=== PATIENT | female | born 1955 | race Caucasian/White ===

== ENCOUNTER → 2018-02-07 | Outpatient (CLI) | payer MEDICAID ==
[2018-02-07 18:42] LABS: Albumin 4.6 g/dL (3.80-4.90); Albumin/Globulin Ratio 2.09 (1.20-2.10); Anion Gap 10.5 mmol/L (4.00-12.00); Calcium 9.4 mg/dL (8.7-10.3); Carbon Dioxide 21.5 mmol/L (21.6-31.8); Globulin 2.2 g/dL (2.1-3.7); LDL Cholesterol,Calculated 147.4 mg/dL (0.0-131.0); Potassium 4.5 mmol/L (3.5-5.5); Total Bilirubin 0.5 mg/dL (0.3-1.2); Total Protein 6.8 g/dL (6.2-8.2); VLDL Calculation 51.6 mg/dL (5.00-40.00)
[2018-02-07 18:49] LABS: T4, Free (Free Thyroxine) 1.2 ng/dL (0.80-1.80)
[2018-02-07 22:44] LABS: Hemoglobin A1C 7.1 % (4.0-6.0)
== END ==
LOC: LABWHC1 13:34
PROVIDERS: ATTEND Internal Medicine Endocrinology, Diabetes & Metabolism
DX: E11.65 Type 2 diabetes mellitus with hyperglycemia (principal); E55.9 Vitamin D deficiency, unspecified; E03.9 Hypothyroidism, unspecified
CPT/HCPCS: 36415; 80053; 80061; 82306; 83036; 84439; 84443

== ENCOUNTER 2022-11-29 07:19 | Day surgery (SDC) | payer MEDICAID, MEDICARE ==
[2022-11-26 16:15] VITALS: BMI 29.1
[~2022-11-29 07:19] MED LIST: LIDOCAINE 1% (10MG/ML) FOR IV START INTRADERMA PRN
--- NOTE | 2022-11-29 07:41 | P.GSHP ---
History of Present Illness H&P Date: 11/29/22 CHIEF COMPLAINT: GERD HISTORY OF PRESENT ILLNESS: The patient is a 66-year-old female who presents reports gastroesophageal reflux disease. Upper endoscopy was offered for further evaluation and management. PAST MEDICAL HISTORY: Please see list. PAST SURGICAL HISTORY: Please see list. MEDICATIONS: Please see list. ALLERGIES: Please see list. SOCIAL HISTORY: No illicit drug use FAMILY HISTORY: No reports of Crohn disease or ulcerative colitis. REVIEW OF ORGAN SYSTEMS: CONSTITUTIONAL: No reports of fevers or chills. GI: Denies any blood in stools or constipation. PHYSICAL EXAM: VITAL SIGNS: Stable GENERAL: Well-developed and pleasant in no acute distress. HEENT: No scleral icterus. Extraocular movements grossly intact. Moist buccal mucosa. NECK: Supple without lymphadenopathy. CHEST: Unlabored respirations. Equal bilateral excursions. CARDIOVASCULAR: Regular rate and rhythm. Distal 2+ pulses. ABDOMEN: Soft, nondistended. MUSCULOSKELETAL: No clubbing, cyanosis, or edema. ASSESSMENT: 1. Gastroesophageal reflux disease PLAN: 1. Recommend proceeding with an upper endoscopy Past Medical History Past Medical History: Diabetes Mellitus, Fibromyalgia, GERD/Reflux, Hyperlipidemia, Hypertension, Osteoarthritis (OA), Thyroid Disorder Additional Past Medical History / Comment(s): inflamed pancreas, hx. of bladder cystitis. History of Any Multi-Drug Resistant Organisms: None Reported Additional Past Surgical History / Comment(s): Bladder extension, colonoscopy. Past Anesthesia/Blood Transfusion Reactions: No Reported Reaction Smoking Status: Never smoker - Past Family History Mother Family Medical History: Coronary Artery Disease (CAD) Medications and Allergies Home Medications Medication Instructions Recorded Confirmed Type Amitriptyline HCl [Elavil] 75 mg PO HS 11/26/22 11/26/22 History Levothyroxine Sodium [Synthroid] 75 mcg PO DAILY 11/26/22 11/26/22 History Meloxicam [Mobic] 15 mg PO DAILY 11/26/22 11/26/22 History lisinopriL [Zestril] 5 mg PO DAILY 11/26/22 11/26/22 History metFORMIN HCL 500 mg PO BID 11/26/22 11/26/22 History Allergies Allergy/AdvReac Type Severity Reaction Status Date / Time Sulfa (Sulfonamide Allergy Rash/Hives Verified 11/26/22 15:58 Antibiotics)
[2022-11-29 08:05] VITALS: RESP 16; TEMP 97.1
[2022-11-29] MEDS: LACTATED RINGERS 1,000 ML IV SCH ×2 (08:06→08:28)
[2022-11-29 08:07] LABS: Glucose,Whole Blood 121 mg/dL (70-110)
[2022-11-29] MEDS ORDERED: LIDOCAINE 2% INJ 20 MG/ML (2 ML VIAL) ONE (08:29)
[2022-11-29] MEDS ORDERED: PROPOFOL 10 MG/ML 20 ML VIAL IV ONE (08:29)
--- NOTE | 2022-11-29 09:08 | P.PCN ---
Date of Procedure: 11/29/22 Description of Procedure: PREOPERATIVE DIAGNOSIS: Gastroesophageal reflux disease. POSTOPERATIVE DIAGNOSIS: Gastroesophageal reflux disease. Gastritis with bleeding Diaphragmatic hiatal hernia OPERATION: Esophagogastroduodenoscopy with biopsies along antrum and duodenum SURGEON: Felipa Rordiguez MD ANESTHESIA: MAC. INDICATIONS: The patient is a 66-year-old female who presents with reflux disease. Benefits and risks of the procedure were described. Informed consent was obtained. DESCRIPTION: The patient was brought into the endoscopy suite and laid in the left lateral decubitus position. An Olympus gastroscope was passed along the posterior oropharynx down to the distal esophagus where the squamocolumnar junction was encountered at 40 cm from the incisors. The stomach was entered and no bile reflux was found. Additional findings are listed below. Biopsies with cold forceps were obtained of the antrum. The first through third portion of the duodenum was examined. Retroflexion of the scope confirmed Hill grade 3 lower esophageal valve. The squamocolumnar junction demonstrated LA grade B erosive esophagitis. The stomach was desufflated. The patient tolerated the procedure well. FINDINGS: Squamocolumnar junction 36 cm from the incisors. Diaphragmatic hiatus at 37 cm. Hiatal hernia, 1 cm Hill grade 3 lower esophageal valve. LA grade B erosive esophagitis. Biopsies obtained of the duodenum. Chronic gastritis with biopsies obtained. RECOMMENDATIONS: Omeprazole 40 mg daily for 2 weeks Plan - Discharge Summary Discharge Rx Participant: Yes New Discharge Prescriptions: New Omeprazole [PriLOSEC] 40 mg PO DAILY #14 cap Continue lisinopriL [Zestril] 5 mg PO DAILY Levothyroxine Sodium [Synthroid] 75 mcg PO DAILY Amitriptyline HCl [Elavil] 75 mg PO HS metFORMIN HCL 500 mg PO BID Meloxicam [Mobic] 15 mg PO DAILY Discharge Medication List Amitriptyline HCl [Elavil] 75 mg PO HS 11/26/22 [History] Levothyroxine Sodium [Synthroid] 75 mcg PO DAILY 11/26/22 [History] Meloxicam [Mobic] 15 mg PO DAILY 11/26/22 [History] lisinopriL [Zestril] 5 mg PO DAILY 11/26/22 [History] metFORMIN HCL 500 mg PO BID 11/26/22 [History] Omeprazole [PriLOSEC] 40 mg PO DAILY #14 cap 11/29/22 [Rx] Follow up Appointment(s)/Referral(s): Felipa Rodriguez MD [STAFF PHYSICIAN] - 12/25/22 2:00 pm Discharge Disposition: HOME SELF-CARE
[2022-11-29 09:25] VITALS: BP 125/78; PULSE 68
== END 2022-11-29 09:49 | disposition home or self-care (01) ==
LOC: ORWHC2ENDO 07:19
PROVIDERS: ATTEND Surgery Plastic and Reconstructive Surgery
DX: K29.50 Unspecified chronic gastritis without bleeding (principal); K44.9 Diaphragmatic hernia without obstruction or gangrene; K21.00 Gastro-esophageal reflux disease with esophagitis, without bleeding; E11.9 Type 2 diabetes mellitus without complications; I10 Essential (primary) hypertension; E78.5 Hyperlipidemia, unspecified; M19.90 Unspecified osteoarthritis, unspecified site; Z82.49 Family history of ischemic heart disease and other diseases of the circulatory system; Z79.890 Hormone replacement therapy; Z79.1 Long term (current) use of non-steroidal anti-inflammatories (NSAID); Z79.899 Other long term (current) drug therapy; Z79.84 Long term (current) use of oral hypoglycemic drugs; Z88.2 Allergy status to sulfonamides
CPT/HCPCS: 88305; 43239; J2704; J2001

== ENCOUNTER 2023-02-21 10:57 | Day surgery (SDC) | payer MEDICARE ==
--- NOTE | 2023-02-21 08:02 | P.GSHP ---
History of Present Illness H&P Date: 02/21/23 CHIEF COMPLAINT: Cholecystitis HISTORY OF PRESENT ILLNESS: The patient is a 67-year-old female who presents with history of epigastric including right upper quadrant abdominal pain. She underwent diagnostic studies for her gallbladder. Separately her clinical picture was consistent with cholecystitis. Now she presents for surgical intervention. PAST MEDICAL HISTORY: Please see list PAST SURGICAL HISTORY: Please see list MEDICATIONS: Please see list ALLERGIES: Please see list SOCIAL HISTORY: Please see list FAMILY HISTORY: Please see list REVIEW OF ORGAN SYSTEMS: CONSTITUTIONAL: No reports of fevers or chills. HEENT: Denies any troubles with the vision or hearing. ENDOCRINE: No reports of hypothyroidism. No diabetes. RESPIRATORY: No recent pneumonias. CARDIOVASCULAR: Denies current chest pain or palpitations GI: No blood in stools or constipation. MUSCULOSKELETAL: Has occasional joint pain including back pain. NEURO: No seizure disorders or headaches. No recent stroke. PSYCH: No current depression or suicidal ideation. GENITOURINARY: No active blood in urine. No urinary hesitancy. HEMATOLOGIC: No personal or family history of DVTs or pulmonary emboli. SKIN: No skin cancer. PHYSICAL EXAM: VITAL SIGNS: Afebrile vital signs stable GENERAL: Well-developed pleasant in no acute distress. HEENT: No scleral icterus. Extraocular movements grossly intact. Moist buccal mucosa. NECK: Supple without lymphadenopathy. CHEST: Unlabored respirations. Equal bilateral excursions. CARDIOVASCULAR: Regular rate regular rhythm rhythm. Distal 2+ pulses. ABDOMEN: Soft, nondistended. Tender along the epigastrium and right upper quadrant. MUSCULOSKELETAL: No clubbing, cyanosis, or edema. NEURO: Cranial nerves II to XII within normal limits. No focal or lateralizing signs. PSYCH: Alert and oriented to person, place and time. SKIN: Well-perfused good skin turgor. ASSESSMENT: 1. Epigastric and right upper quadrant abdominal pain 2. Chronic cholecystitis 3. Symptomatic gallstones. 4. Hypertensive heart disease PLAN: 1. Will need a robotic cholecystectomy possible open. Benefits and risks were described. 2. Heparin for DVT prophylaxis 5000 units. 3. Antibiotic prophylaxis. 4. CBC and CMP on day of procedure 5. Non-narcotic pre and post op pain management reviewed. 6. Indocyanine green for biliary imaging. 7. EKG for hypertensive heart disease Past Medical History Past Medical History: Diabetes Mellitus, Fibromyalgia, GERD/Reflux, Hyperlipidemia, Hypertension, Osteoarthritis (OA), Thyroid Disorder Additional Past Medical History / Comment(s): inflamed pancreas, elías knee arthritis, interstitial cystitis- difficult to start flow. chemical stress test. recently. SOB pt states she was told could be from her gallbladder. left hand fingers get numb, hiatal hernia History of Any Multi-Drug Resistant Organisms: None Reported Additional Past Surgical History / Comment(s): Bladder extension, colonoscopy. egd, Past Anesthesia/Blood Transfusion Reactions: Family History of Problems w/ Anesthesia Additional Past Anesthesia/Blood Transfusion Reaction / Comment(s): mom n/v Smoking Status: Never smoker - Past Family History Mother Family Medical History: Coronary Artery Disease (CAD) Father Family Medical History: Cancer, Coronary Artery Disease (CAD) Brother(s) Family Medical History: Myocardial Infarction ([place]) Medications and Allergies Home Medications Medication Instructions Recorded Confirmed Type Amitriptyline HCl [Elavil] 37.5 mg PO HS 11/26/22 02/18/23 History Levothyroxine Sodium [Synthroid] 75 mcg PO DAILY 11/26/22 02/18/23 History Meloxicam [Mobic] 15 mg PO DAILY 11/26/22 02/18/23 History lisinopriL [Zestril] 5 mg PO DAILY 11/26/22 02/18/23 History metFORMIN HCL 500 mg PO BID 11/26/22 02/18/23 History Ergocalciferol [Vitamin D2 (1250 1,250 mcg PO WEEKLY 02/18/23 02/18/23 History Mcg = 07575 Iu)] Omeprazole [PriLOSEC] 20 mg PO DAILY 02/18/23 02/18/23 History Unk Cinnamon 1 cap PO DAILY 02/18/23 02/18/23 History Allergies Allergy/AdvReac Type Severity Reaction Status Date / Time Sulfa (Sulfonamide Allergy Rash/Hives Verified 02/18/23 10:52 Antibiotics)
[~2023-02-21 10:57] MED LIST changes: +ACETAMINOPHEN TAB 500 MG TAB PO PRN; +DEXAMETHASONE SOD PHOSPHATE 4 MG/ML 1 ML VIAL IV ONE; +HEPARIN SODIUM,PORCINE/PF 5,000 UNIT/0.5 ML SYRINGE SQ PRN; +INDOCYANINE GREEN 25 MG VIAL IV STA; +LACTATED RINGERS 1,000 ML IV SCH; +ONDANSETRON 4 MG/2 ML VIAL IVP ONE; +ONDANSETRON 4 MG/2 ML VIAL IVP PRN; +droPERidol 5 MG/2 ML VIAL IVP ONE
[2023-02-21 11:37] LABS: Glucose,Whole Blood 96 mg/dL (70-110)
[2023-02-21 11:54] LABS: Basophils # (A) 0.1 k/uL (0-0.2); Basophils % (A) 1 %; Eosinophils # (A) 0.1 k/uL (0-0.7); Eosinophils % (A) 2 %; HCT 44.5 % (34.0-46.0); HGB 14.6 gm/dL (11.4-16.0); Lymphocytes # (A) 2.1 k/uL (1.0-4.8); Lymphocytes % (A) 32 %; MCH 28.2 pg (25.0-35.0); MCHC 32.8 g/dL (31.0-37.0); MCV 86.1 fL (80.0-100.0); Mean Platelet Volume 8.6; Monocytes # (A) 0.4 k/uL (0-1.0); Monocytes % (A) 6 %; Neutrophils # (A) 3.8 k/uL (1.3-7.7); Neutrophils % (A) 58 %; Platelet Count 261 k/uL (150-450); RBC 5.18 m/uL (3.80-5.40); RDW 14.2 % (11.5-15.5); WBC 6.7 k/uL (3.8-10.6)
[2023-02-21 12:23] LABS: ALT 21 U/L (4-34); AST 36 U/L (14-36); African American GFR (CKD) >90 (>60 ml/min/1.73 sqM); Albumin 4.6 g/dL (3.5-5.0); Alkaline Phosphatase 71 U/L (38-126); Anion Gap 12 mmol/L; Blood Urea Nitrogen 26 mg/dL (7-17); Carbon Dioxide 21 mmol/L (22-30); Chloride 104 mmol/L (98-107); Glucose 98 mg/dL (74-99); Non-African American GFR(CKD) 89 (>60 ml/min/1.73 sqM); Sodium 137 mmol/L (137-145); Total Bilirubin 0.9 mg/dL (0.2-1.3); Total Protein 7.9 g/dL (6.3-8.2)
[2023-02-21 12:25] LABS: Potassium 4.6 mmol/L (3.5-5.1)
[2023-02-21] MEDS ORDERED: MIDAZOLAM 2 MG/2 ML VIAL ONE (12:51)
[2023-02-21] MEDS ORDERED: fentaNYL (PF) 50 MCG/ML 2 ML AMP ONE (12:51)
[2023-02-21] MEDS ORDERED: PROPOFOL 10 MG/ML 20 ML VIAL IV ONE (12:51)
[2023-02-21] MEDS ORDERED: LIDOCAINE 1% INJ 10MG/ML (20 ML MDV) ONE (12:51)
[2023-02-21] MEDS ORDERED: NEOSTIGMINE 1 MG/ML 10 ML VIAL ONE (12:51)
[2023-02-21] MEDS ORDERED: PHENYLEPHRINE-0.9% NACL SYG 1,000 MCG/10 ML SYRINGE ONE (12:51)
[2023-02-21] MEDS ORDERED: VASOPRESSIN 20 UNIT/ML 1 ML VIAL ONE (12:51)
[2023-02-21] MEDS ORDERED: ROCURONIUM 10 MG/ML (5 ML VIAL) IV ONE (12:51)
[2023-02-21] MEDS ORDERED: SUCCINYLCHOLINE CHLORIDE 200 MG/10 ML VIAL IV ONE (12:51)
[2023-02-21] MEDS ORDERED: GLYCOPYRROLATE 0.2 MG/ML 2 ML VIAL ONE (12:51)
[2023-02-21] MEDS ORDERED: LIDOCAINE 0.5%-EPI 1:200,000 50 ML VIAL SQ ONE (13:26)
[2023-02-21] MEDS ORDERED: LACTATED RINGERS 1,000 ML IV ONE (14:13)
[2023-02-21] MEDS: HYDROmorphone 0.5 MG/0.5 ML SYRINGE IVP PRN ×3 (14:27→14:48)
--- NOTE | 2023-02-21 14:35 | P.OP ---
Date of Procedure: 02/21/23 Description of Procedure: SURGEON: FELIPA RODRIGUEZ MD PREOPERATIVE DIAGNOSES: 1. Symptomatic gallstones 2. Right upper quadrant abdominal pain 3. Hyperlipidemia 4. Diabetes type 2, [id number] 5. Hypothyroidism 6. Hypertensive heart disease 7. Gastroesophageal reflux disease POSTOPERATIVE DIAGNOSES: 1. Symptomatic gallstones 2. Right upper quadrant abdominal pain 3. Hyperlipidemia 4. Diabetes type 2, [id number] 5. Hypothyroidism 6. Hypertensive heart disease 7. Gastroesophageal reflux disease OPERATION: Robotic-assisted da Rebekah Xi laparoscopic cholecystectomy, multiport with FIREFLY ESTIMATED BLOOD LOSS: 5 mL. SPECIMENS REMOVED: Gallbladder. COMPLICATIONS: None. OPERATIVE FINDINGS: 1. Chronic cholecystitis INDICATIONS: The patient is a 67-year-old female who presents with symptomatic gallstones. Robotic assisted laparoscopic approach was described. Benefits and risks of the procedure including but not limited to bleeding, infection, injury to the biliary tree was described. Informed consent was obtained. DESCRIPTION OF PROCEDURE: Patient was brought to the operating room, placed in supine position. After general induction, the abdomen had been prepped and draped in standard sterile fashion. The robotic da Rebekah XI system was primed. After a timeout protocol was performed, the patient had been prepped and draped in standard sterile fashion. The patient was injected with indocyanine green. A 5 mm 0 degrees laparoscopic trocar entry was performed along the left upper quadrant. The abdomen insufflated to 15 mmHg pressure which was tolerated well. Diagnostic laparoscopy demonstrated no injury to bowel viscera or mesentery. The liver surface was unremarkable. Next, two 8 mm robotic ports were placed along the right upper abdomen. The camera 8-mm port was maintained along the epigastrium. Another 8 mm port was placed along the left upper abdominal wall after exchanging the 5 mm port. Please note that the ports were placed at least 10 to 15 cm away from the target anatomy of the gallbladder. The robot was docked along the left lateral abdomen. The patient was repositioned in reverse Trendelenburg position. Using a grasper for arm 3, a grasper for arm 4, including hook cautery for arm 1, the robotic system was docked and primed as described. Instruments were interchanged by the real estate administrative assistant including hook cautery, Bovie cautery and clip appliers. I had sat at the console. Next attention was brought to the infundibulum and cystic structures. The infundibulum and cystic duct were dissected free from surrounding tissues. The cystic duct was isolated. FIREFLY was used to identify the cystic artery and cystic structures. A critical view of safety was obtained. Large PLASTIC clips were used throughout the entire case. Using a clip picker operator, 2 clips were placed at the junction of the infundibulum and cystic duct. The cystic duct was divided between clips. Next, the cystic artery was similarly clipped and cauterized. Electro-Bovie cautery was used to remove the gallbladder from the hepatic fossa. Hemostasis was checked and found to be adequate. The robot was undocked. I re-scrubbed into the case. Using a 10 mm Endo Catch bag via the left upper quadrant incision, the specimen was removed from the abdominal cavity. All pneumoperitoneum instruments were evacuated from the abdominal cavity. The incisions were reapproximated using 4-0 Monocryl in an interrupted subcuticular fashion. Fascial defects were less than 8 mm in size. Please note along the trocar sites, local anesthetic was placed as a field block prior to insertion of all instruments. Liquid glue was applied to the skin. At the end of the procedure needle, sponge, and instrument count had been verified correct by the surgical instrument repair specialist. The patient was transferred to postanesthesia care unit in stable condition. Intraoperative films were shared with the patient's family. Plan - Discharge Summary Discharge Rx Participant: No New Discharge Prescriptions: New Acetaminophen Tab [Tylenol Tab] 1,000 mg PO Q6HR PRN #30 tablet PRN Reason: Pain Ibuprofen [Motrin] 600 mg PO Q8HR PRN #30 tab PRN Reason: Pain Simethicone [Gas-X] 125 mg PO AC-TID PRN #20 capsule PRN Reason: Pain Continue lisinopriL [Zestril] 5 mg PO DAILY Levothyroxine Sodium [Synthroid] 75 mcg PO DAILY Ergocalciferol [Vitamin D2 (1250 Mcg = 19193 Iu)] 1,250 mcg PO WEEKLY Omeprazole [PriLOSEC] 20 mg PO DAILY Atorvastatin [Lipitor] 10 mg PO DAILY Amitriptyline HCl [Elavil] 37.5 mg PO HS metFORMIN HCL 500 mg PO BID Meloxicam [Mobic] 15 mg PO DAILY Unk Cinnamon 1 cap PO DAILY Discharge Medication List Amitriptyline HCl [Elavil] 37.5 mg PO HS 11/26/22 [History] Levothyroxine Sodium [Synthroid] 75 mcg PO DAILY 11/26/22 [History] Meloxicam [Mobic] 15 mg PO DAILY 11/26/22 [History] lisinopriL [Zestril] 5 mg PO DAILY 11/26/22 [History] metFORMIN HCL 500 mg PO BID 11/26/22 [History] Ergocalciferol [Vitamin D2 (1250 Mcg = 34701 Iu)] 1,250 mcg PO WEEKLY 02/18/23 [History] Omeprazole [PriLOSEC] 20 mg PO DAILY 02/18/23 [History] Unk Cinnamon 1 cap PO DAILY 02/18/23 [History] Acetaminophen Tab [Tylenol Tab] 1,000 mg PO Q6HR PRN #30 tablet 02/21/23 [Rx] Atorvastatin [Lipitor] 10 mg PO DAILY 02/21/23 [History] Ibuprofen [Motrin] 600 mg PO Q8HR PRN #30 tab 02/21/23 [Rx] Simethicone [Gas-X] 125 mg PO AC-TID PRN #20 capsule 02/21/23 [Rx] Follow up Appointment(s)/Referral(s): Felipa Rodriguez MD [STAFF PHYSICIAN] - 02/26/23 Patient Instructions/Handouts: Low Fat Diet (DC), Cholecystitis (GEN), Laparoscopic Cholecystectomy (DC) Activity/Diet/Wound Care/Special Instructions: TELEHEALTH - DR WILL CALL YOU BETWEEN 8 am to 8 pm Recommend low-fat diet for the next 2 days. No lifting over 10 pounds in 2 weeks until Mar 07August shower. No bath tub soaks for two weeks until Mar 07 Diet as tolerated. Use Tylenol, simethicone and ibuprofen or Aleve scheduled for the next 24-48 hours for best pain relief. Use ice along incisions for today to prevent swelling. Discharge Disposition: HOME SELF-CARE
[2023-02-21 14:36] VITALS: TEMP 97.9
[2023-02-21] MEDS ORDERED: KETOROLAC 15 MG/ML 1 ML VIAL IVP ONE (14:39)
[2023-02-21 14:57] LABS: Glucose,Whole Blood 187 mg/dL (70-110)
[2023-02-21 17:18] VITALS: BP 109/70; PULSE 67; RESP 18
== END 2023-02-21 17:20 | disposition home or self-care (01) ==
LOC: OR 10:57
PROVIDERS: ATTEND Surgery Plastic and Reconstructive Surgery
DX: K80.12 Calculus of gallbladder with acute and chronic cholecystitis without obstruction (principal); I11.9 Hypertensive heart disease without heart failure; E03.9 Hypothyroidism, unspecified; E11.9 Type 2 diabetes mellitus without complications; E78.5 Hyperlipidemia, unspecified; K21.9 Gastro-esophageal reflux disease without esophagitis; M79.7 Fibromyalgia; Z79.1 Long term (current) use of non-steroidal anti-inflammatories (NSAID); Z79.84 Long term (current) use of oral hypoglycemic drugs; Z79.890 Hormone replacement therapy; Z79.899 Other long term (current) drug therapy; Z88.1 Allergy status to other antibiotic agents; Z88.2 Allergy status to sulfonamides
CPT/HCPCS: 47562; S2900; 80053; 85025; 88304

== ENCOUNTER → 2023-04-02 | Outpatient (CLI) | payer MEDICARE ==
[2023-04-02 14:42] LABS: INR 0.9 (<1.2); Partial Thromboplastin Time 22.9 sec (22.0-30.0); Prothrombin Time 10.2 sec (10.0-12.5)
[2023-04-02 18:39] LABS: HCT 42.7 % (37.2-46.3); HGB 14.2 g/dL (12.0-15.0); MCH 28.2 pg (27.0-32.0); MCHC 33.3 g/dL (32.0-37.0); MCV 84.9 FL (80.0-97.0); Mean Platelet Volume 11.5 FL (9.5-12.2); NRBC Per 100 WBC 0 X 10*3/uL (0.00-0.01); Platelet Count 255 X 10*3/uL (140-440); RBC 5.03 X 10*6/uL (4.10-5.20); RDW 14.9 % (11.5-14.5); WBC 6.38 X 10*3/uL (4.50-10.00)
[2023-04-02 19:00] LABS: ALT 19 U/L (8-44); AST 18 U/L (13-35); Albumin 4.4 g/dL (3.8-4.9); Albumin/Globulin Ratio 1.83 Ratio (1.60-3.17); Alkaline Phosphatase 82 U/L (41-126); BUN/Creat Ratio 26.11 Ratio (12.00-20.00); Blood Urea Nitrogen 23.5 mg/dL (9.0-27.0); Carbon Dioxide 21.3 mmol/L (21.6-31.8); Chloride 106 mmol/L (96-109); Globulin 2.4 g/dL (1.6-3.3); Glucose 118 mg/dL (70-110); Potassium 4.1 mmol/L (3.5-5.5); Sodium 141 mmol/L (135-145); Total Bilirubin 0.5 mg/dL (0.3-1.2); Total Protein 6.8 g/dL (6.2-8.2)
== END | disposition home or self-care (01) ==
LOC: LABPAT 13:37
PROVIDERS: ATTEND Orthopaedic Surgery Sports Medicine
DX: Z01.812 Encounter for preprocedural laboratory examination (principal); M17.12 Unilateral primary osteoarthritis, left knee; Z22.322 Carrier or suspected carrier of Methicillin resistant Staphylococcus aureus
CPT/HCPCS: 36415; 80053; 85027; 85610; 85730; 87070

== ENCOUNTER 2023-04-25 05:47 | Day surgery (SDC) | payer MEDICARE ==
[2023-04-18 16:11] VITALS: BMI 31.4
[~2023-04-25 05:47] MED LIST changes: -DEXAMETHASONE SOD PHOSPHATE 4 MG/ML 1 ML VIAL IV ONE; +GABAPENTIN 300 MG CAP PO PRN; -HEPARIN SODIUM,PORCINE/PF 5,000 UNIT/0.5 ML SYRINGE SQ PRN; -INDOCYANINE GREEN 25 MG VIAL IV STA; +MELOXICAM 7.5 MG TAB PO PRN; -ONDANSETRON 4 MG/2 ML VIAL IVP ONE; +TRANEXAMIC 1,000 MG/100ML-NACL 1,000 MG in SALINE 1 100ML.BAG IVPB PRN; -droPERidol 5 MG/2 ML VIAL IVP ONE
[2023-04-25] MEDS ORDERED: DEXAMETHASONE SOD PHOSPHATE 4 MG/ML 1 ML VIAL IVP ONE (06:50)
[2023-04-25 06:56] LABS: Glucose,Whole Blood 130 mg/dL (70-110)
[2023-04-25] MEDS ORDERED: MIDAZOLAM 2 MG/2 ML VIAL IVP ONE (07:04)
[2023-04-25] MEDS ORDERED: fentaNYL (PF) 50 MCG/ML 2 ML AMP IVP ONE (07:04)
[2023-04-25] MEDS ORDERED: ACETAMINOPHEN TAB 325 MG TAB PO PRN (07:22)
[2023-04-25] MEDS ORDERED: NALOXONE 0.4 MG/ML 1 ML VIAL IV PRN (07:22)
[2023-04-25] MEDS ORDERED: ONDANSETRON 4 MG/2 ML VIAL IVP PRN (07:22)
[2023-04-25] MEDS ORDERED: NA PHOS,M-B/NA PHOS,DI-BA 133 ML ENEMA RECTAL PRN (07:22)
[2023-04-25] MEDS ORDERED: bisacodyL 10 MG SUPP RECTAL PRN (07:22)
[2023-04-25] MEDS ORDERED: traMADol 50 MG TAB PO PRN (07:22)
[2023-04-25] MEDS ORDERED: MAGNESIUM HYDROXIDE 2,400 MG/30 ML CUP PO PRN (07:22)
[2023-04-25] MEDS ORDERED: HYDROmorphone 0.5 MG/0.5 ML SYRINGE IVP PRN ×3 (07:22)
[2023-04-25] MEDS ORDERED: HYDROcodone/APAP 7.5-325MG 1 EACH TAB PO PRN ×2 (07:26→16:42)
[2023-04-25] MEDS ORDERED: ePHEDrine 50 MG/ML 1 ML VIAL ONE (07:33)
[2023-04-25] MEDS ORDERED: fentaNYL (PF) 50 MCG/ML 2 ML AMP ONE (07:33)
[2023-04-25] MEDS ORDERED: LIDOCAINE 1% INJ 10MG/ML (20 ML MDV) ONE (07:33)
[2023-04-25] MEDS ORDERED: TRANEXAMIC 1,000 MG/100ML-NACL PREMIX BAG ONE (07:33)
[2023-04-25] MEDS ORDERED: PHENYLEPHRINE-0.9% NACL SYG 1,000 MCG/10 ML SYRINGE ONE (07:33)
[2023-04-25] MEDS ORDERED: ROPIVACAINE 5 MG/ML 30 ML VIAL ONE (07:33)
[2023-04-25] MEDS ORDERED: SODIUM CHLORIDE 0.9% (PF) 10 ML VIAL ONE (07:33)
[2023-04-25] MEDS ORDERED: PROPOFOL 10 MG/ML 20 ML VIAL IV ONE (07:33)
[2023-04-25] MEDS ORDERED: ceFAZolin 3,000 MG in SODIUM CHLORIDE 0.9% IRRIGATIO 3,000 ML IRRIGATION ONE (07:59)
[2023-04-25] MEDS ORDERED: LACTATED RINGERS 1,000 ML IV ONE (08:38)
[2023-04-25 09:36] LABS: Glucose,Whole Blood 139 mg/dL (70-110)
--- NOTE | 2023-04-25 09:38 | P.ANPRN ---
Procedure Note - Anesthesia - Nerve Block Performed Left Adductor Canal Infusion Time Out Performed: Yes (0704) Date of Procedure: 04/25/23 Procedure Start Time: 07:05 Procedure Stop Time: 07:12 Location of Patient: PreOp Indication: Acute Post-Operative Pain, Requested by Surgeon Specifically requested for management of pain by DrJimmie: Manuel Ludwig Sedation Type: Sedate with meaningful contact maintained Preparation: Sterile Prep, Sterile Dressing Position: Supine Catheter Depth at Skin (cm): 8 Catheter: Indwelling Needle Types: Pajunk Needle Gauge: 21 Ultrasound used to visualize needle placement: Yes Ultrasound used to observe medication spread: Yes Injectate: 0.5% Ropivacaine (see comment for volume) (15cc+ 10cc nacl pf) Blood Aspirated: No Pain Paresthesia on Injection Noted: No Resistance on Injection: Normal Image Stored and Saved: Yes Events: Uneventful and Well Tolerated
--- NOTE | 2023-04-25 09:39 | P.ANPRN ---
Procedure Note - Anesthesia - Nerve Block Performed Left iPack Single Time Out Performed: Yes (0704) Date of Procedure: 04/25/23 Procedure Start Time: 07:13 Procedure Stop Time: 07:15 Indication: Acute Post-Operative Pain, Requested by Surgeon Specifically requested for management of pain by DrJimmie: Manuel Ludwig Sedation Type: Sedate with meaningful contact maintained Preparation: Sterile Prep Position: Supine Catheter: None Needle Types: Pajunk Needle Gauge: 21 Ultrasound used to visualize needle placement: Yes Ultrasound used to observe medication spread: Yes Injectate: 0.5% Ropivacaine (see comment for volume) (15cc+10cc nacl pf) Blood Aspirated: No Pain Paresthesia on Injection Noted: No Resistance on Injection: Normal Image Stored and Saved: Yes Events: Uneventful and Well Tolerated
[2023-04-25] MEDS ORDERED: ROPIVACAINE 0.75% 1,100 MG, SODIUM CHLORIDE 0.9% 500 ML 403 ML, EMPTY PAIN BALL 1 EACH MISCELLANE PRN ×2 (09:41)
[2023-04-25] MEDS: HYDROmorphone 0.5 MG/0.5 ML SYRINGE IVP PRN ×2 (10:16→10:27)
--- NOTE | 2023-04-25 10:32 | XR ---
EXAMINATION TYPE: XR knee limited LT DATE OF EXAM: 04/25/2023 CLINICAL HISTORY: Left knee pain and arthritis status post total knee replacement. TECHNIQUE: Portable AP and crosstable lateral views of the left knee are obtained immediately postop eratively. COMPARISON: None FINDINGS: Metallic hardware from total left knee arthroplasty is seen and appears satisfactory in al ignment and position. There is evidence of recent surgery with diffuse subcutaneous gas and soft tis enrrique swelling noted. IMPRESSION: METALLIC HARDWARE FROM TOTAL LEFT KNEE ARTHROPLASTY IS SATISFACTORY IN ALIGNMENT.
--- NOTE | 2023-04-25 10:47 | OP ---
OPERATIVE REPORT DATE OF SERVICE : 04/25/2023 DIVING FISHER: Patrick Felton PA-C. PREOPERATIVE DIAGNOSIS: Left knee osteoarthrosis. POSTOPERATIVE DIAGNOSIS: Left knee osteoarthrosis. OPERATION: Left total knee arthroplasty. ANESTHESIA: Spinal with sedation. ESTIMATED BLOOD LOSS: 100 mL. TOURNIQUET TIME: 48 minutes at 250 mmHg. COMPLICATIONS: None apparent. DRAINS: None. DISPOSITION: Postanesthesia care unit. INDICATIONS: Christine is a pleasant 67-year-old female with longstanding history of left knee pain. History and physical examination are consistent with advanced left knee osteoarthrosis. She has been through significant operative management up to this point. Further treatment options were discussed, and she has decided to go forward with a left total knee arthroplasty. The risks of procedure were discussed with her in detail. These risks include, but are not limited to risk of infection, nerve damage, bleeding, pain, and a small risk of deep vein thrombosis, which could lead to fatal pulmonary embolism. There is also small risk of loosening of the implant, which could require revision operation. The patient understands these risks. All of her questions were answered to her satisfaction. An appropriate informed consent was obtained. DESCRIPTION OF THE PROCEDURE: The patient was identified in the preoperative holding area. Surgical site was marked by both the patient and myself. She was given 2 g of Ancef IV prophylactic purposes. She was then transferred to the operative suite. She was placed in supine on the operating room table. Spinal anesthetic was then administered and dosed per the anesthesia department without apparent complication. Examination under anesthesia was then performed. The patient was 5 to 7 degrees shy of full extension. She had 90 degrees of flexion. Medial collateral ligament, lateral collateral ligament, and posterior cruciate ligaments were stable. A tourniquet was then placed high on the left upper extremity, well-padded in preparation for surgery. The patient's left lower extremity was then prepped and draped in the usual sterile fashion. Standard surgical pause undertaken to ensure that we were operating the correct site and that appropriate preoperative antibiotics were given. All staff in the room were in agreement, and we proceeded. The outlines of the patella were then marked with a surgical pen. A planned 12 cm vertical incision centered over the patella and was marked with a surgical pen. Legs were then exsanguinated with an Esmarch dressing. The knee was then flexed, and the tourniquet was inflated to 250 mmHg. The total tourniquet time for the procedure was 48 minutes. Incision was then made with a 10-blade scalpel. This dissection was carried down sharply overlying fascia. Great care was taken to minimize the skin flaps. The knee was then exposed using a standard medial parapatellar approach. A small cuff of quadriceps tendon was then left for suturing. She was in quite a bit of varus preoperatively. A standard medial release was then made. The superficial medial collateral ligament was dissected off the bone around to the posterior aspect of the proximal tibia. The medial meniscus was then excised as well. The lateral meniscus was also released anteriorly. The leg was then externally rotated. The patella was everted. The knee was flexed. Retractors then placed to protect the collateral ligaments. I then proceeded to remove the infrapatellar fat pad. This excised sharply tangentially with fibers of the patellar tendon. I then proceeded to remove the peripheral osteophytes. This was done with a rongeur. I then proceeded with the distal femoral resection. She did have a significant flexion contracture. A planned 11 mm resection was then done. The femoral canal was then entered in the midline of the femur approximately 10 mm anterior to the origin of the posterior cruciate ligament. The amita was then advanced down to the center of the femur and placed intramedullary. Based on the preoperative radiographs, the angle between the anatomic and mechanical axis of the femur was approximately 4 to 5 degrees. The valgus angle of the distal femoral cutting guide was then set at 4 degrees for the left knee. The distal femoral cutting guide was then advanced over the intramedullary amita. This was seated firmly against the femur. Then as mentioned planned to take 11 mm off the distal femur. The cutting block was then secured onto the femur with pins. The jig was then removed. The distal femoral cut was made through the slot of the block. The pins were removed. The distal femoral cutting block was removed. The accuracy of the distal femoral cuts was checked with 2 flat bars. I then proceeded with femoral sizing. Posterior referencing sizing guide was held firmly against the resected distal surface of the femur. The posterior condyles were resting on the posterior plane of the guide. The sizing stylus was then placed on the anterior femur. The size was measured with a size 8. I then assessed for femoral rotation. The plan was for 3 degrees of external rotation. Three degrees of external rotation was placed onto the jig. These holes were then marked. We then confirmed the rotation by 3 separate methods. This was done using epicondylar axis as well as Whitesides line and posterior referencing. It was deemed that the external rotation was proper. I then went forward and placed the femoral cutting block. This was placed over the previously-placed pin holes. The Marquise wing was then placed on the anterior slots to ensure that we would not notch the anterior femur with the anterior femoral cut. I then proceeded with the anterior femoral cut. This was flushed with the anterior cortex of the femur. The posterior cuts were then made followed by the anterior chamfer cut and then the posterior chamfer cut. The cutting block was then removed. Throughout the resection, the collateral ligaments were protected with retractors. I then placed a trial size 8 femur. It was slightly wide, but the narrow fit very nicely, and it fit flushed with the distal end of the femur. The drill hole was then made. I then proceeded with the tibial cut. I planned for cruciate retaining knee. The guide was placed and set for varus valgus and for slope. Height was set for approximately 2 mm resection from the medial tibial plateau, which was the lower side. I was happy with the alignment and amount of resection. The cutting block was then pinned to the proximal tibia. The alignment amita was removed and the proximal tibia was resected with a reciprocating saw. Again, this was done with retractors protecting the collateral ligaments as well as the posterior cruciate ligament. I then proceeded to evaluate the flexion and extension gaps. A 10 mm block was then placed. The flexion and extension gaps were equal. I then proceeded with resection of the posterior osteophytes. She had fairly minimal posterior osteophytes. This was done using a curved osteotome. This resected the posterior osteophytes, and posterior capsular stripping was done off the posterior aspect of the femur at this time. The osteophytes were then removed. I then proceeded with resection of the patella. The thickness of patella was measured using the caliper. The thickness was 22 mm. Thickness of the anticipated patellar dome was taken into account. Resection was then performed and confirmed to be equal in 4 quadrants using a caliper. Approximately 14 mm of bone remained after resection. A 29 x 8 standard patellar trial was then placed. The holes were drilled and the trial was then placed. I then proceeded with sizing tibial plate. A size D tibial plate fit very nicely. I then placed the trial femur, the tibial tray and patellar button. A 10 mm trial tibial insert was also placed. The components fit very nicely. She had full extension and flexion. The extension and flexion gaps were equal and stable to both varus and valgus stress. The patella tracked appropriately. The tibial tray rotation was marked with a Bovie. This was externally rotated properly. I then proceeded with tibial preparation. I first drilled the femoral holes and removed the femoral component. The tibial tray was then set for proper external rotation as well as medial and lateral placement onto the tibia, this was then pinned into place. I then proceeded punching the keel. I then decided to proceed with cementing of all our components. The knee was thoroughly irrigated with sterile saline solution via pulse lavage. The lateral genicular artery was identified and cauterized. All blood was removed from the bone of the tibia, femur and patella with pulse lavage. I then proceeded with cementing. Two packs of antibiotic bone cement prepared on the back table by surgical device sales representative. I then proceeded with cementing the tibia first. The cement was impacted in the keel as well as deeply seated in the bone. A second coat of cement was then placed. The tibia was then impacted into place. Excess cement was removed with Estela's and Jokers. I then proceeded with cementing the femoral component. The femoral component was also cemented using standard technique. Excess cement was removed. A 10 mm trial insert was then placed into the knee. It was brought into full extension with a constant axial load placed until the cement had hardened. The patellar component was then cemented. This was held firmly with a compressive device until the cement had dried. When the cement had dried, the knee was taken out of extension. All excess cement was removed from around the prosthesis. I then trialed the knee with a 10 mm insert. Flexion and extension gaps were appropriate. The knee was stable. It came into full extension. I decided to go forward with the 10 mm Medial Congruent cross-linked cruciate-retaining tibial insert. The polyethylene was then placed onto the tibial tray and locked into place. The knee was then reduced. The knee was again further irrigated with sterile saline solution with antibiotic added. The tourniquet was then deflated. Total tourniquet time for the procedure was 48 minutes at 250 mmHg. Final components were Geeta Persona size 8 narrow cruciate-retaining femoral component, size D tibial tray, a 10 mm medial congruent cruciate-retaining tibial insert, and polyethylene insert, and a 29 x 8 mm patella. I then proceeded with closure. Again, the knee was thoroughly irrigated. The quadriceps tendon and the medial retinaculum were reapproximated with #2 Ethibond suture. The extensor mechanism was then closed with a running #2 Quill suture. Subcutaneous tissues were closed with 2-0 Vicryl interrupted suture. The skin was closed with a running 3-0 Quill suture. Dermabond was applied to the incision. Sterile compressive dressings were then applied. All sponge and needle counts were deemed correct prior to closure. The patient tolerated the procedure without apparent complication. She was transferred to recovery room in stable condition. MMVAIBHAVL / BERNARD: [id number] /
[2023-04-25] MEDS: LACTATED RINGERS 1,000 ML IV SCH ×2 (12:49→17:08)
[2023-04-25] MEDS: HYDROcodone/APAP 7.5-325MG 1 EACH TAB PO PRN ×3 (13:31→23:58)
[2023-04-25] MEDS ORDERED: MORPHINE SULFATE 2 MG/ML SYRINGE IVP PRN ×4 (16:37)
[2023-04-25] MEDS ORDERED: DEXTROSE 50% SYRINGE 50 ML IVP PRN ×2 (19:29)
[2023-04-25] MEDS ORDERED: PANTOPRAZOLE 40 MG TABLET PO PRN (19:29)
[2023-04-25 20:50] LABS: Glucose,Whole Blood 161 mg/dL (70-110)
[2023-04-25] MEDS ORDERED: SENNOSIDES-DOCUSATE SODIUM 1 EACH TAB PO SCH (21:00)
[2023-04-25] MEDS: INSULIN ASPART (NovoLOG) 100 UNIT/ML VIAL SQ SCH (21:04)
[2023-04-25] MEDS: ASPIRIN 81 MG PO SCH (21:05)
[2023-04-26 03:40] VITALS: TEMP 98.1
[2023-04-26] MEDS: LACTATED RINGERS 1,000 ML IV SCH (06:10)
[2023-04-26] MEDS: HYDROcodone/APAP 7.5-325MG 1 EACH TAB PO PRN ×2 (06:16→11:37)
[2023-04-26] MEDS ORDERED: LEVOTHYROXINE 75 MCG TAB PO SCH (06:30)
[2023-04-26 07:08] LABS: Glucose,Whole Blood 148 mg/dL (70-110)
[2023-04-26] MEDS: INSULIN ASPART (NovoLOG) 100 UNIT/ML VIAL SQ SCH ×2 (07:10→12:46)
--- NOTE | 2023-04-26 08:31 | P.PN ---
Progress Note - Text Progress Note Date: 04/26/23 Postoperative day # 1 status post total knee arthroplasty, and adductor canal catheter placed for postoperative analgesia, currently at ropivacaine 0.2% 8 mL per hour and continuous infusion, visual analogue scale is 3-4/10, patient using oral pain medication for breakthrough pain. Assessment and plan= Acute postoperative pain, adductor canal catheter for pain control, pain is well controlled we'll continue the same management.
[2023-04-26] MEDS: ASPIRIN 81 MG PO SCH (09:11)
[2023-04-26 09:18] VITALS: BP 108/71; PULSE 84; RESP 18
--- NOTE | 2023-04-26 09:51 | P.DS ---
Providers Expected date of discharge: 04/26/23 Attending physician: Manuel Ludwig Consults: 04/25/23 07:22 Consult Physician Routine Consulting Provider: Sheridan Khan Consult Reason/Comments: post op medical management Do you want consulting provider notified?: Yes Primary care physician: Hamlet Samaniego - Discharge Diagnosis(es) (1) Osteoarthritis of left knee Patient was admitted to the OR on 04/25/23 to undergo a left total knee arthroplasty. She had failed conservative measures as an outpatient and desired to proceed with elective surgery after given informed consent. She underwent the above procedure which she tolerated well without complication. Postoperative hospital course has remained without complication. On day of discharge she is afebrile, vital signs stable, labs within acceptable ranges, tolerating by mouth meds and diet, voiding without difficulty, positive flatus, denies abdominal pain or calf pain, pain is controlled on oral pain medication and has no new complaints. Wound is benign, neurovascular status is intact, calf is soft and nontender, abdomen soft and nontender. Review of systems is negative for numbness, tingling, fever, chills, chest pain, shortness of breath, nausea, vomiting, dizziness, headaches, slurred speech or other. Current Visit: Yes Status: Acute Priority: Medium Procedures: Left TKA Patient Condition at Discharge: Good Plan - Discharge Summary Discharge Rx Participant: Yes New Discharge Prescriptions: New Docusate [Colace] 100 mg PO BID #60 capsule Ondansetron [Zofran] 4 mg PO Q8HR PRN #21 tab PRN Reason: Nausea Aspirin [Adult Low Dose Aspirin EC] 81 mg PO BID #60 tab HYDROcodone/APAP 10-325MG [[place] 10-325] 1 tab PO Q4HR PRN #42 tab PRN Reason: Pain No Action lisinopriL [Zestril] 5 mg PO DAILY Levothyroxine Sodium [Synthroid] 75 mcg PO DAILY Ergocalciferol [Vitamin D2 (1250 Mcg = 65740 Iu)] 1,250 mcg PO WEEKLY Omeprazole [PriLOSEC] 20 mg PO DAILY PRN PRN Reason: Heartburn metFORMIN HCL 500 mg PO BID Meloxicam [Mobic] 15 mg PO DAILY Unk Cinnamon 1 cap PO DAILY Ibuprofen [Advil] 200 mg PO ONCE PRN PRN Reason: Pain Discharge Medication List Levothyroxine Sodium [Synthroid] 75 mcg PO DAILY 11/26/22 [History] Meloxicam [Mobic] 15 mg PO DAILY 11/26/22 [History] lisinopriL [Zestril] 5 mg PO DAILY 11/26/22 [History] metFORMIN HCL 500 mg PO BID 11/26/22 [History] Ergocalciferol [Vitamin D2 (1250 Mcg = 89194 Iu)] 1,250 mcg PO WEEKLY 02/18/23 [History] Omeprazole [PriLOSEC] 20 mg PO DAILY PRN 02/18/23 [History] Unk Cinnamon 1 cap PO DAILY 02/18/23 [History] Ibuprofen [Advil] 200 mg PO ONCE PRN 04/18/23 [History] Aspirin [Adult Low Dose Aspirin EC] 81 mg PO BID #60 tab 04/26/23 [Rx] Docusate [Colace] 100 mg PO BID #60 capsule 04/26/23 [Rx] HYDROcodone/APAP 10-325MG [[place] 10-325] 1 tab PO Q4HR PRN #42 tab 04/26/23 [Rx] Ondansetron [Zofran] 4 mg PO Q8HR PRN #21 tab 04/26/23 [Rx] Follow up Appointment(s)/Referral(s): Manuel Ludwig MD [STAFF PHYSICIAN] - 10 Days Activity/Diet/Wound Care/Special Instructions: Weight bear as tolerated May shower after 3 days if no bleeding Keep wound clean and dry Take meds as directed F/U with Dr. Ludwig in office Discharge Disposition: HOME WITH HOME HEALTH SERVICES
[2023-04-26 10:54] LABS: Basophils % (A) 0 %; Eosinophils # (A) 0.1 k/uL (0-0.7); Eosinophils % (A) 2 %; HCT 37.1 % (34.0-46.0); HGB 12.2 gm/dL (11.4-16.0); Lymphocytes # (A) 1.7 k/uL (1.0-4.8); Lymphocytes % (A) 22 %; MCH 29.2 pg (25.0-35.0); MCV 88.5 fL (80.0-100.0); Monocytes # (A) 0.7 k/uL (0-1.0); Monocytes % (A) 9 %; Neutrophils # (A) 4.8 k/uL (1.3-7.7); Neutrophils % (A) 65 %; Platelet Count 207 k/uL (150-450); RBC 4.19 m/uL (3.80-5.40); RDW 14.1 % (11.5-15.5); WBC 7.4 k/uL (3.8-10.6)
[2023-04-26] MEDS ORDERED: MULTIVITAMINS, THERA 1 EACH TAB PO SCH (12:00)
[2023-04-26 12:39] LABS: Glucose,Whole Blood 168 mg/dL (70-110)
--- NOTE | 2023-04-26 14:02 | P.CONS ---
History of Present Illness - Reason for Consult Consult date: 04/26/23 Requesting physician: Patrick eFlton - Chief Complaint medical post op management - History of Present Illness This is a pleasant 67-year-old female History of diabetes mellitus, fibromyalgia, acid reflux, hypertension, hyperlipidemia. Comes in for a planned total left knee arthroplasty she is evaluated today postoperative day #1 she is reporting some numbness around the incisional site. But states the pain is fairly well controlled and she is anticipating discharge today. No shortness of breath no chest pain no nausea vomiting diarrhea she is passing gas. Blood pressure is on the lower side 107 systolic and would recommend to hold his KOBI inhibitor at this time and can resume in a couple days postsurgical. REVIEW OF SYSTEMS: CONSTITUTIONAL: No fever, no malaise, no fatigue. HEENT: No recent visual problems or hearing problems. Denied any sore throat. CARDIOVASCULAR: No chest pain, orthopnea, PND, no palpitations, no syncope. PULMONARY: No shortness of breath, no cough, no hemoptysis. GASTROINTESTINAL: No diarrhea, no nausea, no vomiting, no abdominal pain. NEUROLOGICAL: No headaches, no weakness, no numbness. HEMATOLOGICAL: Denies any bleeding or petechiae. GENITOURINARY: Denies any burning micturition, frequency, or urgency. MUSCULOSKELETAL/RHEUMATOLOGICAL: Denies any joint pain, swelling, or any muscle pain. ENDOCRINE: Denies any polyuria or polydipsia. The rest of the 14-point review of systems is negative. PHYSICAL EXAMINATION: GENERAL: The patient is alert and oriented x3, not in any acute distress. Well developed, well nourished. HEENT: Pupils are round and equally reacting to light. EOMI. No scleral icterus. No conjunctival pallor. Normocephalic, atraumatic. No pharyngeal erythema. No thyromegaly. CARDIOVASCULAR: S1 and S2 present. No murmurs, rubs, or gallops. PULMONARY: Chest is clear to auscultation, no wheezing or crackles. ABDOMEN: Soft, nontender, nondistended, normoactive bowel sounds. No palpable or ganomegaly. MUSCULOSKELETAL: No joint swelling or deformity. EXTREMITIES: No cyanosis, clubbing, or pedal edema. Post-Surgical left knee NEUROLOGICAL: Gross neurological examination did not reveal any focal deficits. SKIN: No rashes. Assessment and Plan Osteoarthritis status post left total knee arthroplasty postoperative day #1. Patient was evaluated by PT OT states that pain is very well controlled at this time Diabetes Mellitus type 2 controlled, continue on metformin twice a day Fibromyalgia GERD continue on omeprazole Hypertension maintained on ACEi recommend holding for 2 days postoperative to avoid hypotension Hypothyroidism continue levothyroxine GI prophylaxis DVT prophylaxis Full Code Patient was discharged home today for home physical therapy recommended to continue same home medications as recommended and follow-up with her PCP 1-2 days. Recommend to continue incentive spirometer 10 times an hour while awake. Patient will continue on 81 mg aspirin twice a day. medically she is stable for discharge. The impression and plan of care has been dictated by Silva Perez Nurse Practitioner as directed. Dr. Eliel MD I have performed a history and physical examination and medical decision making of this patient, discussed the same with the dictator, and agree with the dictators assessment and plan as written, documented as a scribe. Based on total visit time, I have performed more than 50% of this visit. Past Medical History Past Medical History: Diabetes Mellitus, Fibromyalgia, GERD/Reflux, Hyperlipidemia, Hypertension, Osteoarthritis (OA), Thyroid Disorder Additional Past Medical History / Comment(s): hiatal hernia, states inflamed pa ncreas & elevated liver enzymes prior to gallbladder removal., elías knee arthritis, interstitial cystitis- difficult to start flow & OAB., occasional SOB., "occasional flutter" of heart.,. left hand fingers get numb. History of Any Multi-Drug Resistant Organisms: None Reported Past Surgical History: Cholecystectomy Additional Past Surgical History / Comment(s): Bladder suspension, colonoscopy. egd, Past Anesthesia/Blood Transfusion Reactions: No Reported Reaction, Family History of Problems w/ Anesthesia Additional Past Anesthesia/Blood Transfusion Reaction / Comm: mom sever n/v Past Psychological History: No Psychological Hx Reported Additional Psychological History / Comment(s): cares for her mother with dementia Smoking Status: Never smoker Past Alcohol Use History: None Reported Past Drug Use History: None Reported - Past Family History Mother Family Medical History: Coronary Artery Disease (CAD), Dementia Father Family Medical History: Cancer, Coronary Artery Disease (CAD) Brother(s) Family Medical History: Myocardial Infarction ([place]) Medications and Allergies Home Medications Medication Instructions Recorded Confirmed Type Levothyroxine Sodium [Synthroid] 75 mcg PO DAILY 11/26/22 04/18/23 History Meloxicam [Mobic] 15 mg PO DAILY 11/26/22 04/18/23 History lisinopriL [Zestril] 5 mg PO DAILY 11/26/22 04/18/23 History metFORMIN HCL 500 mg PO BID 11/26/22 04/18/23 History Ergocalciferol [Vitamin D2 (1250 1,250 mcg PO WEEKLY 02/18/23 04/18/23 History Mcg = 90743 Iu)] Omeprazole [PriLOSEC] 20 mg PO DAILY PRN 02/18/23 04/18/23 History Unk Cinnamon 1 cap PO DAILY 02/18/23 04/18/23 History Aspirin [Adult Low Dose Aspirin EC] 81 mg PO BID #60 tab 04/26/23 Rx Docusate [Colace] 100 mg PO BID #60 capsule 04/26/23 Rx HYDROcodone/APAP 10-325MG [[place] 1 tab PO Q4HR PRN #42 tab 04/26/23 Rx 10-325] Multivitamins, Thera [Multivitamin 1 each PO DAILY@1200 tab 04/26/23 Rx (formulary)] Ondansetron [Zofran] 4 mg PO Q8HR PRN #21 tab 04/26/23 Rx Allergies Allergy/AdvReac Type Severity Reaction Status Date / Time Sulfa (Sulfonamide Allergy Rash/Hives Verified 04/25/23 06:22 Antibiotics) Physical Exam Vitals: Vital Signs Temp Pulse Pulse Resp BP BP BP 04/26/23 07:28 98.1 F 84 18 108/71 04/26/23 02:00 98.1 F 94 21 108/70 04/25/23 20:00 98.2 F 89 18 107/65 04/25/23 15:30 87 121/80 04/25/23 15:15 78 119/77 04/25/23 15:00 75 114/75 04/25/23 14:32 98 F 78 17 113/74 04/25/23 14:30 97 113/74 04/25/23 14:15 77 112/67 04/25/23 14:00 76 124/77 04/25/23 13:46 97.6 F 97 18 137/83 04/25/23 12:15 84 16 115/65 04/25/23 12:00 88 16 122/68 04/25/23 11:45 89 16 122/72 04/25/23 11:30 83 16 118/63 04/25/23 11:15 82 16 121/70 04/25/23 11:01 83 16 111/67 04/25/23 10:45 80 16 113/66 04/25/23 10:30 79 16 116/70 04/25/23 10:17 80 16 106/66 04/25/23 10:02 79 16 111/75 Pulse Ox 04/26/23 07:28 92 L 04/26/23 02:00 96 04/25/23 20:00 94 L 04/25/23 15:30 93 L 04/25/23 15:15 93 L 04/25/23 15:00 93 L 04/25/23 14:32 95 04/25/23 14:30 90 L 04/25/23 14:15 93 L 04/25/23 14:00 89 L 04/25/23 13:46 04/25/23 12:15 99 04/25/23 12:00 99 04/25/23 11:45 99 04/25/23 11:30 99 04/25/23 11:15 99 04/25/23 11:01 99 04/25/23 10:45 99 04/25/23 10:30 99 04/25/23 10:17 99 04/25/23 10:02 99 Intake and Output 04/25/23 04/26/23 04/26/23 22:59 06:59 14:59 Intake Total 200 Balance 200 Intake: Oral 200 Other: Voiding Method Toilet # Voids 2 5 Results CBC & Chem 7: 04/26/23 06:37 Labs: Abnormal Lab Results - Last 24 Hours (Table) 04/25/23 04/26/23 Range/Units 20:45 07:07 POC Glucose (mg/dL) 161 H 148 H (70-110) mg/dL Assessment and Plan Time with Patient: Less than 30
[2023-05-02] MEDS ORDERED: ERGOCALCIFEROL 1,250 MCG (50,000 IU) CAPSULE PO SCH (09:00)
== END 2023-04-26 14:02 | disposition home health service (06) ==
LOC: OR 05:47 → 4SSUR 09:30 → OR 04-26 14:02
PROVIDERS: ATTEND Orthopaedic Surgery Sports Medicine
DX: M17.12 Unilateral primary osteoarthritis, left knee (principal); G89.18 Other acute postprocedural pain; I10 Essential (primary) hypertension; E78.5 Hyperlipidemia, unspecified; E11.9 Type 2 diabetes mellitus without complications; E03.9 Hypothyroidism, unspecified; K44.9 Diaphragmatic hernia without obstruction or gangrene; M79.7 Fibromyalgia; Z79.84 Long term (current) use of oral hypoglycemic drugs; Z79.899 Other long term (current) drug therapy; Z88.2 Allergy status to sulfonamides; Z90.49 Acquired absence of other specified parts of digestive tract; Z98.890 Other specified postprocedural states; Z83.3 Family history of diabetes mellitus
CPT/HCPCS: 97161; 64999; 64448; 85025; 83036; 73560; 27447; C1776; C1713; C1751; J2250; J1100; J0690 ×2; J2405; J3010; J2270; J1170; J2795

== ENCOUNTER → 2023-08-21 | Outpatient (CLI) | payer MEDICARE ==
[2023-08-21 13:34] LABS: INR 0.9 (<1.2); Partial Thromboplastin Time 23.9 sec (22.0-30.0); Prothrombin Time 10.1 sec (10.0-12.5)
[2023-08-21 19:16] LABS: HCT 42.5 % (37.2-46.3); HGB 13.4 g/dL (12.0-15.0); MCH 27.2 pg (27.0-32.0); MCHC 31.5 g/dL (32.0-37.0); MCV 86.4 FL (80.0-97.0); NRBC Per 100 WBC 0 X 10*3/uL (0.00-0.01); Platelet Count 289 X 10*3/uL (140-440); RBC 4.92 X 10*6/uL (4.10-5.20); RDW 15.6 % (11.5-14.5); WBC 5.39 X 10*3/uL (4.50-10.00)
[2023-08-21 19:26] LABS: ALT 17 U/L (8-44); AST 19 U/L (13-35); Albumin 4.5 g/dL (3.8-4.9); Albumin/Globulin Ratio 1.96 Ratio (1.60-3.17); Alkaline Phosphatase 99 U/L (41-126); BUN/Creat Ratio 26.67 Ratio (12.00-20.00); Calcium 9.5 mg/dL (8.7-10.3); Carbon Dioxide 21.8 mmol/L (21.6-31.8); Chloride 104 mmol/L (96-109); Globulin 2.3 g/dL (1.6-3.3); Glucose 154 mg/dL (70-110); Potassium 4.6 mmol/L (3.5-5.5); Sodium 139 mmol/L (135-145); Total Bilirubin 0.4 mg/dL (0.3-1.2); Total Protein 6.8 g/dL (6.2-8.2)
== END | disposition home or self-care (01) ==
LOC: LABPAT 11:27
PROVIDERS: ATTEND Orthopaedic Surgery Sports Medicine
DX: Z01.812 Encounter for preprocedural laboratory examination (principal); M17.11 Unilateral primary osteoarthritis, right knee; Z22.322 Carrier or suspected carrier of Methicillin resistant Staphylococcus aureus
CPT/HCPCS: 36415; 80053; 85027; 85610; 85730; 87070

== ENCOUNTER 2023-09-05 05:48 | Day surgery (SDC) | payer MEDICARE ==
[~2023-09-05 05:48] MED LIST changes: -ACETAMINOPHEN TAB 500 MG TAB PO PRN; -GABAPENTIN 300 MG CAP PO PRN; -LACTATED RINGERS 1,000 ML IV SCH; -LIDOCAINE 1% (10MG/ML) FOR IV START INTRADERMA PRN; -MELOXICAM 7.5 MG TAB PO PRN; -ONDANSETRON 4 MG/2 ML VIAL IVP PRN
[2023-09-05] MEDS ORDERED: LIDOCAINE 1% (10MG/ML) FOR IV START INTRADERMA PRN (06:04)
[2023-09-05] MEDS: LACTATED RINGERS 1,000 ML IV ONE (06:13)
[2023-09-05 06:37] LABS: Glucose,Whole Blood 127 mg/dL (70-110)
[2023-09-05] MEDS: GABAPENTIN 300 MG CAP PO PRN (06:50)
[2023-09-05] MEDS: ACETAMINOPHEN TAB 500 MG TAB PO PRN (06:50)
[2023-09-05] MEDS: DEXAMETHASONE SOD PHOSPHATE 4 MG/ML 1 ML VIAL IVP ONE (06:50)
[2023-09-05] MEDS: MELOXICAM 7.5 MG TAB PO PRN (06:50)
[2023-09-05] MEDS: ONDANSETRON 4 MG/2 ML VIAL IVP PRN (06:50)
[2023-09-05] MEDS: MIDAZOLAM 2 MG/2 ML VIAL IVP ONE (06:52)
[2023-09-05] MEDS ORDERED: MIDAZOLAM 2 MG/2 ML VIAL IV PRN (07:00)
[2023-09-05] MEDS: fentaNYL (PF) 50 MCG/ML 2 ML AMP IVP ONE (07:03)
[2023-09-05] MEDS ORDERED: ROPIVACAINE 5 MG/ML 30 ML VIAL ONE (07:35)
[2023-09-05] MEDS ORDERED: fentaNYL (PF) 50 MCG/ML 2 ML AMP ONE (07:35)
[2023-09-05] MEDS ORDERED: TRANEXAMIC 1,000 MG/100ML-NACL PREMIX BAG ONE (07:35)
[2023-09-05] MEDS ORDERED: PHENYLEPHRINE-0.9% NACL SYG 1,000 MCG/10 ML SYRINGE ONE (07:35)
[2023-09-05] MEDS ORDERED: DEXAMETHASONE SOD PHOSPHATE 4 MG/ML 1 ML VIAL ONE (07:35)
[2023-09-05] MEDS ORDERED: PROPOFOL 10 MG/ML 20 ML VIAL IV ONE (07:35)
[2023-09-05] MEDS ORDERED: MIDAZOLAM 2 MG/2 ML VIAL ONE (07:35)
--- NOTE | 2023-09-05 07:39 | P.ANPRN ---
Procedure Note - Anesthesia - Nerve Block Performed Right iPack Single Time Out Performed: Yes Date of Procedure: 09/05/23 Procedure Start Time: 06:50 Procedure Stop Time: 06:54 Location of Patient: PreOp Indication: Acute Post-Operative Pain, Analgesia, Requested by Surgeon Sedation Type: Sedate with meaningful contact maintained Preparation: Sterile Prep Position: Left Lateral Catheter: None Needle Types: Pajunk Needle Gauge: 21 Ultrasound used to visualize needle placement: Yes Ultrasound used to observe medication spread: Yes Injectate: 0.5% Ropivacaine (see comment for volume) (Ropiv 20ml+decadron 4mg) Blood Aspirated: No Pain Paresthesia on Injection Noted: No Resistance on Injection: Normal Image Stored and Saved: Yes Events: Uneventful and Well Tolerated
--- NOTE | 2023-09-05 07:42 | P.ANPRN ---
Procedure Note - Anesthesia - Nerve Block Performed Right Adductor Canal Infusion Time Out Performed: Yes Date of Procedure: 09/05/23 Procedure Start Time: 06:55 Procedure Stop Time: 07:00 Location of Patient: PreOp Indication: Acute Post-Operative Pain, Analgesia, Requested by Surgeon Sedation Type: Sedate with meaningful contact maintained Preparation: Sterile Prep Position: Supine Catheter: Indwelling Needle Types: On-Q Ultrasound used to visualize needle placement: Yes Ultrasound used to observe medication spread: Yes Injectate: 0.5% Ropivacaine (see comment for volume) (Ropiv 20ml+decadron 4mg) Blood Aspirated: No Pain Paresthesia on Injection Noted: No Resistance on Injection: Normal Image Stored and Saved: Yes Events: Uneventful and Well Tolerated
[2023-09-05] MEDS: ceFAZolin 3,000 MG in SODIUM CHLORIDE 0.9% IRRIGATIO 3,000 ML IRRIGATION ONE (08:11)
[2023-09-05] MEDS: LACTATED RINGERS 1,000 ML IV SCH ×2 (09:07→16:20)
[2023-09-05] MEDS ORDERED: bisacodyL 10 MG SUPP RECTAL PRN (09:36)
[2023-09-05] MEDS ORDERED: NA PHOS,M-B/NA PHOS,DI-BA 133 ML ENEMA RECTAL PRN (09:36)
[2023-09-05] MEDS ORDERED: HYDROmorphone 0.5 MG/0.5 ML SYRINGE IVP PRN ×3 (09:36)
[2023-09-05] MEDS ORDERED: traMADol 50 MG TAB PO PRN (09:36)
[2023-09-05] MEDS ORDERED: ACETAMINOPHEN TAB 325 MG TAB PO PRN (09:36)
[2023-09-05] MEDS ORDERED: ONDANSETRON 4 MG/2 ML VIAL IVP PRN (09:36)
[2023-09-05] MEDS ORDERED: NALOXONE 0.4 MG/ML 1 ML VIAL IV PRN (09:36)
[2023-09-05] MEDS ORDERED: MAGNESIUM HYDROXIDE 2,400 MG/30 ML CUP PO PRN (09:36)
[2023-09-05] MEDS: HYDROmorphone 0.5 MG/0.5 ML SYRINGE IVP PRN (09:58)
--- NOTE | 2023-09-05 10:10 | OP ---
OPERATIVE REPORT DATE OF SERVICE : 09/05/2023 PREOPERATIVE DIAGNOSIS: Right knee osteoarthrosis. POSTOPERATIVE DIAGNOSIS: Right knee osteoarthrosis. OPERATION: Right total knee arthroplasty. ANESTHESIA: Spinal with sedation. ESTIMATED BLOOD LOSS: 100 mL. TOURNIQUET TIME: 45 minutes at 250 mmHg. COMPLICATIONS: None apparent. DRAINS: None. DISPOSITION: Postanesthesia care unit. INDICATIONS: Christine is a very pleasant 67-year-old female with longstanding history of right knee pain. History and physical examination are consist with advanced right knee osteoarthrosis. She has been through significant nonoperative management up to this point. Further treatment options were discussed, and she decided to go forward with right total knee arthroplasty. The risks of procedure were discussed with her in detail. These risks include, but are not limited to, risk of infection, nerve damage, bleeding, pain, and a small risk of deep vein thrombosis which could lead to fatal pulmonary embolism. There is also a small risk of loosening of the implant which could require revision operation. The patient understands these risks. All of her questions were answered to her satisfaction. Appropriate informed consent was obtained. DESCRIPTION OF THE PROCEDURE: The patient was identified in the preoperative holding area. Surgical site was marked by both the patient and myself. She was given 2 g of Ancef IV prophylactic purposes. She was then transported to the operative suite. She was placed supine on the operating room table. Spinal anesthetic was then administered, dosed per the anesthesia without apparent complication. An examination under anesthesia was then performed. The patient was 2 to 3 degrees shy of full extension. She had 100 degrees of flexion. Medial collateral ligament, lateral collateral ligament, and posterior cruciate ligaments were stable. Tourniquet was then placed high on the right upper thigh, well-padded in preparation for surgery. The patient's right lower extremity was then prepped and draped in usual sterile fashion. Standard surgical pause was undertaken to ensure that we were operating the correct site and appropriate preoperative antibiotics were given. All staff in room were in agreement, and we proceeded. The outlines of the patella were marked with a surgical pen. A planned 12-cm vertical incision centered over the patella was marked with a surgical pen. The leg was then exsanguinated with an Esmarch dressing. The knee was then flexed, and the tourniquet was inflated to 250 mmHg. Total tourniquet time for the procedure was 45 minutes. Incision was then made with a 10-blade scalpel. This dissection was carried down sharply to the overlying fascia. Great care was taken to minimize the skin flaps. The knee was then exposed using a standard medial parapatellar approach. A small cuff of quadriceps tendon was then left for suturing. She was in a bit of varus preoperatively. A standard medial release was then made. Superficial medial collateral ligament was dissected off the bone around to the posterior aspect of the proximal tibia. The medial meniscus was then excised as well. The lateral meniscus was also released anteriorly. The leg was then externally rotated. The patella was everted and the knee was flexed. Retractor was then placed to protect the collateral ligaments. I then proceeded to remove the infrapatellar fat pad. This was excised sharply tangentially with fibers of the patellar tendon. I then proceeded to remove the peripheral osteophytes. This was done with a rongeur. I then proceeded with the distal resection. She did have a near full extension. A planned 9-mm resection was done. The femoral canal was then entered in midline, the femur approximately 10 mm anterior to the origin of the posterior cruciate ligament. The amita was then advanced down the center of the femur and placed intramedullary. Based on the preoperative radiographs, the angle between the anatomic and mechanical axis femur was approximately 4 to 5 degrees. The valgus angle of the distal femoral cutting guide was then set at 4 degrees for the right knee. The distal cutting guide was then advanced over the intramedullary amita. This was seated firmly against the femur. Then as mentioned planned to take 9 mm off the distal femur. The cutting block was then secured onto the femur with pins. The jig was then removed. Distal femoral cut was made through the slot of the block. The pins were then removed. The distal cutting block was removed. The accuracy of the distal femoral cuts was checked with 2 flat bars. I then proceeded with femoral sizing. Posterior referencing sizing guide was held firmly against the resected distal surface of the femur. The posterior condyles were resting on the posterior plane of the guide. The sizing stylus was then placed on the anterior femur. The size was measured as a size 8. I then assessed for femoral rotation. The plan was for 3 degrees of external rotation. Three degrees of external rotation was placed onto the jig. These holes were then marked. I then confirmed the rotation by 3 separate methods. This was done using epicondylar axis as well as Whitesides line and posterior referencing. It was deemed that the external rotation was proper. I then went forward with placement of the femoral cutting block. This was placed over the previously placed pin holes. The Marquise wing was then placed on the anterior slots to ensure that we would not notch the anterior femur with the anterior femoral cut. I then proceeded with the anterior femoral cut. This was flushed with the anterior cortex of the femur. The posterior cuts were then made followed by the anterior chamfer cut and then the posterior chamfer cut. Cutting block was then removed. Throughout the resection, the collateral ligaments were protected with retractors. I then placed trial size 8 femur. It was slightly wide but the narrow fit very nicely and it flushed with the distal end of the femur. The drill holes were then made. I then proceeded with the tibial cut. I planned for cruciate-retaining knee. The guide was placed and set for varus-valgus and for slope. The height was set for approximately 2 mm resection from the medial tibial plateau, which was the lower side. I was happy with the alignment and the amount of resection. Cutting block was then pinned to the proximal tibia. The alignment amita was removed. The proximal tibia was resected with a reciprocating saw. Again, this was done with retractors protecting the collateral ligaments as well as the posterior cruciate ligament. I then proceeded to evaluate the flexion extension gaps. A 10-mm block was then placed. The flexion extension gaps were equal. I then proceeded with resection of posterior osteophytes. She had fairly significant posterior osteophytes. This done using a curved osteotome. This resected the posterior osteophytes, and posterior capsular stripping was done off the posterior aspect of the femur at this time. The osteophytes were then removed. I then proceeded with resection of the patella. The thickness of the patella was measured using the caliper. The thickness was approximately 22 mm. The thickness of the anticipated patellar dome was taken into account. Resection was then performed and confirmed to be equal in 4 quadrants using a caliper. Approximately 14 mm of bone remained after resection. A 29 x 8 standard patellar trial was then placed. The holes were drilled and the trial was then placed. I then proceeded with sizing tibial plate. A size D tibial plate fit very nicely. I then placed the trial femur, the tibial tray, and the patellar button. A 10-mm trial tibial insert was also placed. The components fit very nicely. She had full extension and flexion. The extension and flexion gaps were equal and stable to both varus and valgus stress. The patella tracked appropriately. The tibial tray rotations were marked with a Bovie. This was externally rotated properly. I then proceeded with tibial preparation. I first drilled the femoral holes and removed the femoral component. The tibial tray was then set for proper external rotation as well as medial lateral placement onto the tibia. It was then pinned into place. I then proceeded with punching the keel. I then decided to proceed with cementing of all our components. The knee was thoroughly irrigated with sterile saline solution via pulse lavage. The lateral genicular artery was identified and cauterized. All blood was removed from the bone of the tibia, femur, and patella with pulsed lavage. I then proceeded with cementing. Two packs of antibiotic bone cement prepared on the back table by security technician. I then proceeded with cementing the tibia first. The cement was impacted into the keel as well as deeply seated into bone. A second coat of cement was then placed. The tibia was then impacted into place. Excess cement was removed with Estela's and Jokers. I then proceeded with cementing the femoral component. The femoral component was also cemented using standard technique. Excess cement was removed. A 10 mm trial insert was then placed in the knee. It was brought into full extension with a constant axial load placed until the cement had hardened. The patellar component was then cemented. This was held firmly with compressive device until the cement had dried. When the cement had dried, the knee was taken out of extension. All excess cement was removed from around the prosthesis. I then trialed the knee with a 10 mm insert. Flexion and extension gaps were appropriate. The knee was stable. It came into full extension. I decided to go forward with the 10 mm Medial Congruent cross-linked cruciate-retaining tibial insert. Polyethylene was then placed on the tibial tray and locked into place. The knee was then reduced. The knee was again further irrigated with sterile saline solution with antibiotic added. The tourniquet was then deflated. Total tourniquet time for the procedure was 45 minutes at 250 mmHg. Final components were Geeta Persona size 8 narrow cruciate-retaining femoral component, size D tibial tray, a 10 mm medial congruent cruciate-retaining polyethylene insert, and a 29 x 8 mm patella. I then proceeded with closure. Again, the knee was thoroughly irrigated. The quadriceps tendon and the medial retinaculum were reapproximated with #2 Ethibond suture. The extensor mechanism was then closed with a running #2 Quill suture. Subcutaneous tissues were closed with 2-0 Vicryl interrupted suture and the skin was closed with a running 3-0 Quill suture. [place]oko villarreal was applied to the incision. Sterile compressive dressings were then applied. All sponge and needle counts were deemed correct prior to closure. The patient tolerated the procedure without apparent complication. She was transferred to recovery room in stable condition. MMODL / IJN: [id number] /
--- NOTE | 2023-09-05 10:22 | XR ---
EXAMINATION TYPE: XR knee limited RT DATE OF EXAM: 09/05/2023 COMPARISON: NONE TECHNIQUE: Two views submitted HISTORY: Post op FINDINGS: There is a prosthetic knee in near anatomic alignment. There is soft tissue edema and soft tissue e mphysema. IMPRESSION: 1. Postoperative change. Appears in near-anatomic alignment
[2023-09-05] MEDS: ROPIVACAINE 1,100 MG, SODIUM CHLORIDE 0.9% 500 ML 330 ML, EMPTY PAIN BALL 1 EACH MISCELLANE PRN (10:24)
[2023-09-05] MEDS: ONDANSETRON 4 MG/2 ML VIAL IVP ONE (10:47)
[2023-09-05] MEDS: DEXAMETHASONE SOD PHOSPHATE 4 MG/ML 1 ML VIAL IV ONE (10:47)
[2023-09-05 11:33] LABS: Glucose,Whole Blood 194 mg/dL (70-110)
[2023-09-05] MEDS: HYDROcodone/APAP 7.5-325MG 1 EACH TAB PO PRN ×2 (11:47→16:12)
[2023-09-05] MEDS ORDERED: PANTOPRAZOLE 40 MG TABLET PO PRN (12:26)
[2023-09-05] MEDS ORDERED: DEXTROSE 50% SYRINGE 50 ML IVP PRN ×2 (12:27)
[2023-09-05] MEDS: INSULIN ASPART (NovoLOG) 100 UNIT/ML VIAL SQ SCH (12:50)
--- NOTE | 2023-09-05 13:55 | P.CONS ---
History of Present Illness - Reason for Consult Consult date: 09/05/23 Medical management Requesting physician: Manuel Ludwig - Chief Complaint Right knee surgery - History of Present Illness This is a pleasant 67-year-old patient who follows with Dr. Samaniego. Chronic stable medical condition include diabetes, fibromyalgia, GERD, hyperlipidemia, essential hypertension, hypothyroid, chronic low back pain follows Dr. Yeh, interstitial cystitis. Patient is undergone right total knee arthroplasty. Postprocedure pain is controlled. A bit sleepy. No chest pain or shortness of breath. Review of systems: GEN.: Tired EYES: None HEENT: None NECK: None RESPIRATORY: None CARDIOVASCULAR: None GASTROINTESTINAL: None GENITOURINARY: None MUSCULOSKELETAL: Joint pains LYMPHATICS: None HEMATOLOGICAL: None PSYCHIATRY: None NEUROLOGICAL: None Social history: No smoking alcohol. Lives with her . Physical examination: VITAL SIGNS: 97.8, 87, 17, 120/73, 94% on 2 L GENERAL: BMI 31.7, a bit sleepy reclining in bed. EYES: Pupils equal. Conjunctiva jermaine l. HEENT: External appearance of nose and ears normal, oral cavity grossly normal. NECK: JVD not raised; masses not palpable. HEART: First and second heart sounds are normal; no edema. LUNGS: Respiratory rate normal; clear to auscultation. ABDOMEN: Soft, nontender, liver spleen not palpable, no masses palpable. PSYCH: Answering questions appropriately l. MUSCULOSKELETAL:No Clubbing/cyanosis;muscles-grossly intact. OA. Tereso wrap over right leg NEUROLOGICAL: Cranial nerves grossly intact; no facial asymmetry, power and sensation grossly intact. LYMPHATICS: No lymph nodes palpable in the axilla and neck INVESTIGATIONS, reviewed in the clinical context: August 21, 2023: White count 5.3 hemoglobin 13.4 sodium 139 potassium 4.6 BUN 24 creatinine 0.9 Assessment plan: -Right total knee arthroplasty Aspirin for DVT prophylaxis. Pain control -Diabetes mellitus type 2 on oral hypoglycemic Metformin 5 mg twice daily. Diabetic diet. Follow Accu-Cheks with sliding scale -Essential hypertension Zestril 5 mg a day hold hydrochlorothiazide -GERD Prilosec 20 mg -Primary osteoarthritis Pain control as needed -Hypothyroid Synthroid 75 mcg a day -Hyperlipidemia Lipitor 20 mg nightly -Chronic insomnia Elavil -Full code Care was discussed with the patient. Questions answered. Thank you Dr. Ludwig Past Medical History Past Medical History: Diabetes Mellitus, Fibromyalgia, GERD/Reflux, Hyperlipidemia, Hypertension, Osteoarthritis (OA), Skin Disorder, Thyroid Disorder Additional Past Medical History / Comment(s): HAVING LOWER BACK PAIN AND SAW DR. YEH EARLY IN 2023, WILL ADDRESS TREATMENT OPTIONS AFTER RIGHT KNEE HAS HEALED. HAS RASH UNDER BREASTS. LOWER EXTREMETY EDEMA. Danie knee arthritis, interstitial cystitis- difficult to start flow. hiatal hernia History of Any Multi-Drug Resistant Organisms: None Reported Past Surgical History: Cholecystectomy Additional Past Surgical History / Comment(s): left knee arthroplasty 04/25/23. Bladder extension, colonoscopy. egd, Past Anesthesia/Blood Transfusion Reactions: No Reported Reaction, Family History of Problems w/ Anesthesia Additional Past Anesthesia/Blood Transfusion Reaction / Comm: mom n/v. Past Psychological History: No Psychological Hx Reported Smoking Status: Never smoker Past Alcohol Use History: None Reported Past Drug Use History: None Reported - Past Family History Mother Family Medical History: Coronary Artery Disease (CAD), Dementia Father Family Medical History: Cancer, Coronary Artery Disease (CAD) Brother(s) Family Medical History: Myocardial Infarction (PA) Medications and Allergies Home Medications Medication Instructions Recorded Confirmed Type Levothyroxine Sodium [Synthroid] 75 mcg PO QAM 11/26/22 09/05/23 History Meloxicam [Mobic] 15 mg PO DAILY 11/26/22 09/05/23 History lisinopriL [Zestril] 5 mg PO QAM 11/26/22 09/05/23 History metFORMIN HCL 500 mg PO BID 11/26/22 09/05/23 History Ergocalciferol [Vitamin D2 (1250 1,250 mcg PO AMARO 02/18/23 09/05/23 History Mcg = 81280 Iu)] Omeprazole [PriLOSEC] 20 mg PO DAILY PRN 02/18/23 09/05/23 History Unk Cinnamon 1 cap PO DAILY 02/18/23 09/05/23 History Aspirin [Adult Low Dose Aspirin EC] 81 mg PO BID #60 tab 04/26/23 09/05/23 Rx Multivitamins, Thera [Multivitamin 1 each PO DAILY@1200 tab 04/26/23 09/05/23 Rx (formulary)] Amitriptyline HCl [Elavil] 0.5 tab PO HS 09/04/23 09/05/23 History Atorvastatin [Lipitor] 10 mg PO HS 09/04/23 09/05/23 History hydroCHLOROthiazide 25 mg PO QAM PRN 09/04/23 09/05/23 History Allergies Allergy/AdvReac Type Severity Reaction Status Date / Time Sulfa (Sulfonamide Allergy Rash/Hives Verified 09/05/23 06:25 Antibiotics) Physical Exam Vitals: Vital Signs Temp Pulse Pulse Resp BP Pulse Ox 09/05/23 11:08 97.8 F 87 17 124/73 94 L 09/05/23 10:40 73 11 L 144/81 93 L 09/05/23 10:25 75 11 L 159/87 93 L 09/05/23 10:10 78 12 159/87 93 L 09/05/23 09:55 72 20 169/96 97 09/05/23 09:40 97.3 F L 70 18 128/98 98 09/05/23 07:00 89 16 115/58 99 09/05/23 06:23 98.2 F 88 16 143/74 97 Intake and Output 09/04/23 09/05/23 09/05/23 22:59 06:59 14:59 Intake Total 700 451 Output Total 250 Balance 700 201 Intake: IV 700 451 Output: Urine 150 Estimated Blood Loss 100 Other: Weight 89.2 kg 89.2 kg Results Labs: Abnormal Lab Results - Last 24 Hours (Table) 09/05/23 09/05/23 Range/Units 06:36 11:31 POC Glucose (mg/dL) 127 H 194 H (70-110) mg/dL
[2023-09-05 17:36] LABS: Glucose,Whole Blood 192 mg/dL (70-110)
[2023-09-05] MEDS: metFORMIN 500 MG TAB PO SCH (20:30)
[2023-09-05] MEDS: ASPIRIN 81 MG PO SCH (20:30)
[2023-09-05] MEDS: ATORVASTATIN 10 MG TAB PO SCH (20:30)
[2023-09-05] MEDS: AMITRIPTYLINE HCL 25 MG TAB PO SCH (20:30)
[2023-09-05] MEDS: SENNOSIDES-DOCUSATE SODIUM 1 EACH TAB PO SCH (20:36)
[2023-09-05 20:39] LABS: Glucose,Whole Blood 184 mg/dL (70-110)
[2023-09-06 05:39] LABS: Glucose,Whole Blood 114 mg/dL (70-110)
[2023-09-06] MEDS: LEVOTHYROXINE 75 MCG TAB PO SCH (05:51)
[2023-09-06] MEDS: lisinopriL 5 MG TAB PO SCH (08:48)
[2023-09-06 09:10] LABS: Basophils # (A) 0.02 X 10*3/uL (0.00-0.10); Basophils % (A) 0.2 %; Eosinophils # (A) 0.04 X 10*3/uL (0.04-0.35); Eosinophils % (A) 0.4 %; HCT 35.7 % (37.2-46.3); HGB 11.5 g/dL (12.0-15.0); Lymphocytes # (A) 1.65 X 10*3/uL (0.90-5.00); Lymphocytes % (A) 15.1 %; MCH 27.4 pg (27.0-32.0); MCHC 32.2 g/dL (32.0-37.0); Monocytes # (A) 1.17 X 10*3/uL (0.20-1.00); Monocytes % (A) 10.7 %; NRBC Per 100 WBC 0 X 10*3/uL (0.00-0.01); Neutrophils # (A) 8.04 X 10*3/uL (1.80-7.70); Neutrophils % (A) 73.2 %; Platelet Count 251 X 10*3/uL (140-440); RDW 15.1 % (11.5-14.5); WBC 10.96 X 10*3/uL (4.50-10.00)
--- NOTE | 2023-09-06 11:21 | P.PN ---
Progress Note - Text Progress Note Date: 09/06/23 Anesthesiology Postop day 1 status post total knee arthroplasty with adductor canal catheter. Patient doing well. VAS 5 out of 10. Gross strength intact in lower extremity. Afebrile. Denies alterations in sensorium. Catheter site intact. Heart regular rate Lungs nonlabored Abdomen nondistended Assessment: Postop day 1 status post total knee arthroplasty with adductor canal catheter Plan: 1.All questions answered. Maintain catheter 2 more days with patient removal at home. Instructions to be given at discharge. 2.This note was dictated using [employer] software. Please be advised there is a potential for misspellings or errors in legal librarian.
[2023-09-06 11:38] LABS: Glucose,Whole Blood 155 mg/dL (70-110)
[2023-09-06] MEDS: MULTIVITAMINS, THERA 1 EACH TAB PO SCH (12:59)
[2023-09-06 15:05] VITALS: BP 111/63; PULSE 89; RESP 18; TEMP 98.8
--- NOTE | 2023-09-06 17:20 | P.PN ---
Progress Note - Text Progress Note Date: 09/06/23 - Chief Complaint Right knee surgery - History of Present Illness This is a pleasant 67-year-old patient who follows with Dr. Samaniego. Chronic stable medical condition include diabetes, fibromyalgia, GERD, hyperlipidemia, essential hypertension, hypothyroid, chronic low back pain follows Dr. Vega, interstitial cystitis. Patient is undergone right total knee arthroplasty. Postprocedure pain is controlled. A bit sleepy. No chest pain or shortness of breath. September 05: Did tolerate a diet. Some pain present. No dizziness no lightheadedness. Patient will resume her lisinopril when systolic blood pressure above 130. Check daily blood pressures. Ferrous sulfate added Social history: No smoking alcohol. Lives with her . Physical examination: VITAL SIGNS: 98.8, 89, 18, 111/63, 99% room air GENERAL: Comfortable EYES: Pupils equal. Conjunctiva jermaine l. HEENT: External appearance of nose and ears normal, oral cavity grossly normal. NECK: JVD not raised; masses not palpable. HEART: First and second heart sounds are normal; no edema. LUNGS: Respiratory rate normal; clear to auscultation. ABDOMEN: Soft, nontender, liver spleen not palpable, no masses palpable. PSYCH: Answering questions appropriately l. MUSCULOSKELETAL:No Clubbing/cyanosis;muscles-grossly intact. OA. Tereso wrap over right leg INVESTIGATIONS, reviewed in the clinical context: September 05: White count 10.9 hemoglobin 9.5 platelets 251 August 21, 2023: White count 5.3 hemoglobin 13.4 sodium 139 potassium 4.6 BUN 24 creatinine 0.9 Assessment plan: -Right total knee arthroplasty Aspirin for DVT prophylaxis. Pain control -Diabetes mellitus type 2 on oral hypoglycemic Metformin 5 mg twice daily. Diabetic diet. Follow Accu-Cheks with sliding scale -Acute postprocedure blood loss anemia expected from surgery Ferrous sulfate -Essential hypertension Resume Zestril 5 mg a day when systolic blood pressure above 130. Daily blood pressure check -GERD Prilosec 20 mg -Primary osteoarthritis Pain control as needed -Hypothyroid Synthroid 75 mcg a day -Hyperlipidemia Lipitor 20 mg nightly -Chronic insomnia Elavil -Full code Discussed with patient. Follow-up with PCP next week. Thank you Dr. Ludwig Past Medical History Past Medical History: Diabetes Mellitus, Fibromyalgia, GERD/Reflux, Hyperlipidemia, Hypertension, Osteoarthritis (OA), Skin Disorder, Thyroid Disorder Additional Past Medical History / Comment(s): HAVING LOWER BACK PAIN AND SAW DR. VEGA EARLY IN 2023, WILL ADDRESS TREATMENT OPTIONS AFTER RIGHT KNEE HAS HEALED. HAS RASH UNDER BREASTS. LOWER EXTREMETY EDEMA. Danie knee arthritis, interstitial cystitis- difficult to start flow. hiatal hernia History of Any Multi-Drug Resistant Organisms: None Reported Past Surgical History: Cholecystectomy Additional Past Surgical History / Comment(s): left knee arthroplasty 04/25/23. Bladder extension, colonoscopy. egd, Past Anesthesia/Blood Transfusion Reactions: No Reported Reaction, Family History of Problems w/ Anesthesia Additional Past Anesthesia/Blood Transfusion Reaction / Comm: mom n/v. Past Psychological History: No Psychological Hx Reported Smoking Status: Never smoker Past Alcohol Use History: None Reported Past Drug Use History: None Reported
== END 2023-09-06 15:30 | disposition home health service (06) ==
LOC: OR 05:48 → 4SSUR 10:32 → OR 09-06 15:30
PROVIDERS: ATTEND Orthopaedic Surgery Sports Medicine
DX: M17.11 Unilateral primary osteoarthritis, right knee (principal); E03.9 Hypothyroidism, unspecified; E11.9 Type 2 diabetes mellitus without complications; E78.5 Hyperlipidemia, unspecified; G89.18 Other acute postprocedural pain; G89.29 Other chronic pain; I10 Essential (primary) hypertension; K21.9 Gastro-esophageal reflux disease without esophagitis; M79.7 Fibromyalgia; N30.10 Interstitial cystitis (chronic) without hematuria; F51.04 Psychophysiologic insomnia; D62 Acute posthemorrhagic anemia; Z79.1 Long term (current) use of non-steroidal anti-inflammatories (NSAID); Z79.84 Long term (current) use of oral hypoglycemic drugs; Z79.890 Hormone replacement therapy; Z79.899 Other long term (current) drug therapy; Z88.1 Allergy status to other antibiotic agents; Z88.2 Allergy status to sulfonamides; Z90.49 Acquired absence of other specified parts of digestive tract; Z79.82 Long term (current) use of aspirin
CPT/HCPCS: 97162; 64999; 64448; 85025; 73560; 27447; C1776; C1713; C1751; J2250; J1100; J0690 ×3; J2405; J3010; J2795; J2704; J1170; J2371